=== PATIENT | male | born 1945 | race Caucasian/White ===

== ENCOUNTER → 2016-09-06 | Outpatient (CLI) | payer OTHER, MEDICARE | END | disposition home or self-care (01) | LOC: RAD 11:01 | DX: R05 Cough (principal); R63.4 Abnormal weight loss; Z72.0 Tobacco use ==

== ENCOUNTER 2017-10-07 09:08 | Inpatient (IN) | payer OTHER ==
[~2017-10-07] VITALS: Ht 177.8 cm; Wt 82.6 kg
[2017-10-07] VITALS (9 sets, daily range): BP systolic 72–147; BP diastolic 48–77
--- NOTE | ~2017-10-07 | CON ---
[place], [place] REPORT OF CONSULTATION NAME: SONJA ECHEVARRIA [facility] #: [id number] UNIT #: [id number] ROOM: 407 DOCTOR: MARIO RAMON MD BIRTHDATE: [birth year] DOS: 10/08/2017 HISTORY OF PRESENT ILLNESS: The patient is a pleasant 72-year-old gentleman who presented to the Emergency Department with left lower back/flank pain. As per the patient, he was sleeping Danyel night and went to the restroom and was sleep back to the bed. He became lightheaded. His vision went blurry and fitted to black and then he fell down, but states he no loss of consciousness, but while falling he hit on left side of the stool and subsequently was admitted, had an x-ray of the neck, which showed a lytic lesion at C2 area and subsequently consulted for further evaluation and management. PAST MEDICAL HISTORY: Bradycardia, elevated INR, hyperglycemia, left lower back pain and lymphopenia, macrocytic anemia, anxiety disorder, depression, GERD, history of NE, hyperlipidemia, hypertension. PAST SURGICAL HISTORY: Coronary artery bypass graft, triple bypass in 1993. He has a history of mitral valve replacement with mechanical valve. SOCIAL HISTORY: No drinking. No drug abuse. He is a smoker. FAMILY HISTORY: Father of liver cancer. Mother of heart attack. ALLERGIES: CIPROFLOXACIN, HYDROMORPHONE AND PENICILLIN. MEDICATIONS: Aspirin, bupropion, cetirizine, vitamin D3, docusate sodium, donepezil, doxepin, lisinopril, metoprolol, multivitamins, nicotine, nitroglycerin, omeprazole, prazosin, sertraline, warfarin. REVIEW OF SYSTEMS CONSTITUTIONAL: No chills. No fatigue. No fever. No loss of appetite. No night sweats. No weakness. No weight loss. HEAD, EYES, EARS, NOSE, AND THROAT: No trouble swallowing. No loss of smell. No loss of hearing. No double vision. No pain. No discharge. ENT AND RESPIRATORY: No wheeze. No sore throat. No change in voice. No hearing loss. No nose bleed. No cough. No trouble breathing through nose. No shortness of breath. No coughing up blood. No epistaxis. CARDIOVASCULAR: No chest pain. No dizziness. No irregular heartbeat. No leg edema. No pain in legs while walking. No palpitations. No shortness of breath. DERMATOLOGIC: No acne. No hives. No laceration. No mole. No rash. ENDOCRINE: No cold intolerance. No diabetes. No fatigue. No hot flashes. No polydipsia. No polyuria. No urinating frequently. No weight loss. HEMATOLOGIC AND LYMPH: No fatigue. No easy bruising. GASTROENTEROLOGIC: No change in bowel habits. No indigestion. No frequent bloating. No vomiting blood. No abdominal cramping. No nausea. No heartburn. No vomiting. No abdominal pain. No dysphagia. No diarrhea. No constipation. No blood in stool. MALE REPRODUCTIVE: No testicular pain. No difficulty with erection. No diminished sexual drive. No penile discharge. [place], [place] REPORT OF CONSULTATION NAME: SONJA ECHEVARRIA UNIT #: [id number] ROOM: [facility] DOCTOR: MARIO RAMON MD BIRTHDATE: [birth year] MUSCULOSKELETAL: No back pain. No muscle pain or weakness. No neck pain. No tingling/numbness. No swelling/bruising. No osteoporosis treatment. OPTHALMOLOGIC: No double vision. No diminished vision. No loss of vision. UROLOGIC: No dysuria. No frequent nighttime urination. No pain with urination. No difficulty urinating. No blood in urine. No frequent urination. No urinary incontinence. NEUROLOGIC: No loss of sensation in specific body area. No vertigo. No burning pain in feet. No trouble with balance. No trouble with coordination. No loss of consciousness. No loss of feeling/power. No confusion. No headache. No tingling/numbness. PSYCHOLOGIC: No tinnitus. No headaches. No shortness of breath. No weight decrease. No nausea. No vomiting. No abdominal discomfort. No constipation. No diarrhea. No depression. No anxiety. PHYSICAL EXAMINATION: GENERAL: Pleasant gentleman in no apparent distress. VITAL SIGNS: Stable, afebrile. HEAD, EYES, EARS, NOSE, AND THROAT: Oral mucosa appears intact. The external ears are normal in appearance. Nares are patent without lesions, exudates, erythema, or inflammation. Tongue is symmetrical. Uvula is midline. NECK AND THYROID: Neck supple without palpable masses. Trachea is midline. No thyromegaly. No carotid bruit or JVD. BREASTS: Normal. Nipples unremarkable. No drainage. No lumps felt on either side. HEART: Normal S1, S2, without significant murmur, rub, or gallop. LUNGS: Clear to auscultation and percussion with good air entry bilaterally. The patient is breathing easily without the use of accessory muscles. Diaphragmatic excursions are intact. ABDOMEN: No costovertebral angle tenderness. Soft. No organomegaly or masses. Nontender. No hernias present. Liver and spleen are not palpable. LYMPHATIC: No adenopathy noted in the cervical, supraclavicular, axillary, or inguinal regions. NEUROLGIC: Nonfocal. Oriented to person, place, and time. MENTAL STATUS: Appropriate for mood and affect. PERIPHERAL PULSES: No varicosities. Femoral and pedal pulses are palpable. EXTREMITIES: Without cyanosis, clubbing, or edema. No gross anomalies. RADIOLOGY: CT scan of the abdomen and pelvis showed 2 exophytic lesion projecting from the upper pole of the left kidney being larger than they had been in the prior CT, though they are incompletely cataract in the absence of contrast material administration. ____ CT is recommended for followup. CT cervical spine showed a roughly 2 cm lytic lesion of the C2. LABORATORY DATA: White count of 6.8, hemoglobin 12.3, hematocrit 36.2, MCV 94.3, platelet count 174,000. Chemistries: Glucose 83, EGFR is more than 60, sodium 140, potassium 3.4, chloride 106, bicarbonate 28, calcium 8.3, phosphorus 2.7, platelets 135. Total protein 6.1, SGOT 26, SGPT 18, alkaline phosphatase 59. ASSESSMENT: [place], [place] REPORT OF CONSULTATION NAME: SONJA ECHEVARRIA UNIT #: [id number] ROOM: 407 DOCTOR: MARIO RAMON MD BIRTHDATE: [birth year] 1. A 2 cm lytic lesion in the C2 area. 2. Syncope collapse. 3. Exophytic lesion in the right kidney. 4. Macrocytic anemia. PLAN: I had detailed discussion with the patient, will get workup to rule out multiple myeloma including immunofixation studies, the skeletal survey, etc. Also, review of records including x-rays. Depending on that, further intervention. I had a detailed discussion with the patient about it, seemed to understand. Ample time was given to the patient to ask me questions. We will follow. Thanks for consulting and letting me to participate in the care of this interesting patient. MARIO RAMON MD CM:CONSTR:REPORT OF CONSULTATION 1234 10/23/17 0656 interface
--- NOTE | ~2017-10-07 | CON ---
[place], [place] REPORT OF CONSULTATION NAME: SONJA ECHEVARRIA UNIT #: [id number] ROOM: 407 DOCTOR: DERREK CRAIG MD BIRTHDATE: [birth year] DOS: 10/07/2017 REASON FOR CONSULTATION: Lightheadedness and possible syncope with collapse. HISTORY OF PRESENT ILLNESS: The patient is a 72-year-old man who has a history of atherosclerotic and valvular heart disease. He is typically followed by the [facility] and has a cardiology nurse practitioner that sees him at a clinic in [place], [place]. The patient states that he had a myocardial infarction in 1991, at which time, he reportedly had a cardiac arrest. He subsequently underwent a 3-vessel bypass in 1993 at [facility]. He developed mitral valve problems requiring a mechanical mitral valve replacement at the [facility] in 1997. As best I can tell from him, he has not had any surgery since. He does not believe that he has had a stress test since that time. He has had an echocardiogram within the last few weeks and was told that he should have a heart catheterization at the [facility]. The patient does admit that he is getting more dyspneic with minor exertion. He does have episodes of chest pain. His electrocardiogram is not uninterpretable because of an intraventricular conduction delay, but on this admission, his troponin levels are normal. The patient states that he got up to go to the bathroom 2 nights ago. On his way back from the bathroom, he became lightheaded and collapsed, striking his back on a stool. He states that "everything went black," but he denies loss of consciousness. Since then, he has had no further syncopal episodes, but has had persistent back pain and therefore came to the Emergency Room today and was admitted. PAST MEDICAL HISTORY: Includes: 1. Atherosclerotic heart disease, status post myocardial infarction x2 in 1991. The patient reportedly had a resuscitated arrest at that time and was evaluated by Dr. Wilkins at the [facility]. 2. History of 3-vessel bypass at [facility] in 1993. Records are not currently available. 3. Status post mitral valve replacement utilizing a mechanical prosthesis, 1997, at the [facility]. 4. Chronic warfarin therapy because of mechanical mitral valve. 5. PTSD and insomnia. 6. Gastroesophageal reflux disease. 7. Hyperlipidemia. 8. Hypertension. MEDICATIONS: Prior to admission, nicotine gum 2 mg q.2 hours as needed, fluticasone nasal spray 2 sprays daily, aspirin 81 mg per day, bupropion 200 mg b.i.d., cetirizine 10 mg daily, cholecalciferol 1000 units daily, cyanocobalamin 500 mcg daily, docusate 100 mg b.i.d., donepezil 10 mg p.o. at bedtime, doxepin 10 mg at bedtime, isosorbide mononitrate 30 mg daily, lisinopril 5 mg daily, metoprolol 50 mg daily, multivitamin once a day, nitroglycerin sublingually p.r.n., omeprazole 20 mg b.i.d., prazosin 4 mg at bedtime, quetiapine 800 mg at bedtime, rosuvastatin 40 mg at bedtime, sertraline 50 mg daily, warfarin 4.5 mg [place], [place] REPORT OF CONSULTATION NAME: SONJA ECHEVARRIA UNIT #: [id number] ROOM: 407 DOCTOR: DERREK CRAIG MD BIRTHDATE: [birth year] 4 days a week with 3 mg on Mondays, Wednesdays and Fridays to maintain an INR between 2.5 and 3.5. ALLERGIES: He lists allergies to CIPROFLOXACIN, HYDROMORPHONE, AND PENICILLIN. REVIEW OF SYSTEMS: The patient denies diplopia or loss of vision. He denies focal weakness. He did have the lightheaded spell and fall noted above that prompted the current admission. He denies nausea or vomiting. He denies fevers, chills, sweats or recent weight gain. He does admit to dyspnea with exertion, which seems to be getting worse. He denies syncope, aside from the event, prompting the current admission. He denies hemoptysis or hematemesis. He denies blood in his stools or urine. He denies any change in bowel or bladder patterns. He denies peripheral edema or any history of blood clot. He denies polyuria or polydipsia. Remainder of the review of systems is negative except as noted above. FAMILY HISTORY: Father from liver cancer. Mother from a heart attack. SOCIAL HISTORY: The patient is . He does not drink alcohol or use illicit drugs but he does smoke. PHYSICAL EXAMINATION: GENERAL: The patient is an elderly white male who is awake, alert and oriented. He does look older than his stated age. VITAL SIGNS: Pulse is 66 and regular. It has been as low as 48 during this hospitalization. Blood pressure is 113/69. He is afebrile. He weighs 82.5 kg and has a body mass index of 26.1. HEENT: Normocephalic and atraumatic. Extraocular muscles are intact. Sclerae are clear. Pupils equal, round and react to light. The oral mucosa is moist. Tongue is midline. NECK: Supple. He has no jugular distention. Carotids are full. I heard no bruits. He had no neck or supraclavicular masses. LUNGS: Respirations are unlabored. His chest has decreased breath sounds at the bases, but no wheezes or rales. He has no presacral edema. His flank is tender. CARDIOVASCULAR: Heart has a regular rhythm. He has crisp metallic valve clicks. There is a grade 2/6 systolic murmur at the lower left sternal border. No diastolic murmurs are present. The PMI is not displaced. There is no precordial heave, lift or thrill. ABDOMEN: Soft and normally active without masses, organomegaly or bruits. EXTREMITIES: Showed no edema. Peripheral pulses are easily palpated bilaterally in the feet. He did have no palpable cords and no Homans sign. LABORATORY DATA: Hemoglobin is 12.7, hematocrit 38.0, white count 6900, platelet count 190,000. INR is elevated at 4.5. Sodium is 141, potassium 3.8, BUN 7, creatinine 0.94. Troponin levels are negative x2. Electrocardiogram shows sinus rhythm at a rate of 55 with an intraventricular conduction delay. [place], [place] REPORT OF CONSULTATION NAME: [facility]RIA [id number] UNIT #: [id number] ROOM: [facility] DOCTOR: DERREK CRAIG MD BIRTHDATE: [birth year] Chest x-ray showed normal cardiac silhouette with evidence for prior sternotomy. IMPRESSION: 1. Near syncopal episode. 2. Bradycardia and hypotension, possibly due to medications. 3. History of atherosclerotic heart disease. The patient is status post remote bypass surgery. 4. History of valvular heart disease. The patient is status post remote mitral valve replacement utilizing mechanical prosthesis. 5. Cigarette abuse. 6. [facility] not currently available. PLAN: For now, I think we should cut back on his medications, but I would like to continue a low dose of metoprolol. We can withhold the prazosin and lisinopril, but I would continue isosorbide for the time being. We will attempt to get the records from the [facility], but if that is not possible, we may need to repeat his 2D echocardiogram to reassess his mitral valve structure and LV function. In addition, he probably should have a pharmacologic stress test in order to evaluate him for ischemia as a possible cause for arrhythmias. We will keep him on a monitor in the meantime and check orthostatic vital signs. Further recommendations will depend upon his progress in the hospital. I thank the hospitalist physicians for asking our advice regarding his care. DERREK CRAIG MD CM:CONSTR:REPORT OF CONSULTATION 1727 10/24/17 0831 interface
--- NOTE | ~2017-10-07 | PR ---
[place], [place] PROGRESS NOTE NAME: SONJA CEHEVARRIA [facility] #: [id number] UNIT #: [id number] ROOM: 407 DOCTOR: DERREK CRAIG MD BIRTHDATE: [birth year] DOS: 10/08/2017 SUBJECTIVE: The patient was seen today at his bedside with his in attendance on 10/08/2017. He is still sore from his fall. We have cut back on his medications considerably, but his blood pressure remains well controlled. It varies from 109/77-148/77. Currently, he is only on metoprolol and isosorbide for blood pressure control. I did review his echocardiogram today. The left ventricle is normal in size. The septum appears thin and akinetic. There is moderate concentric left ventricular hypertrophy with an ejection fraction about 40-45%. Diastole could not be assessed. The mitral valve prosthesis appears to be well seated and is functioning normally. Aortic valve appears normal. The patient was noted to have a lesion on the CT scan of his cervical spine. There is a concern that this may represent a lytic lesion, which may be either metastatic or related to myeloma. PHYSICAL EXAMINATION: VITAL SIGNS: Today, his pulse is 62 and regular, blood pressure is 109/77. He is afebrile. Orthostatic vital signs did show a drop from 142/75 supine to 129/88 sitting and 124/77 standing. Earlier, it went from 148/77 supine to 123/81 standing. NECK: Supple. He has no jugular distention. Carotids are full. LUNGS: Respirations are unlabored. Chest is clear to auscultation and percussion with decreased breath sounds at the bases, but no wheezes or rales. HEART: Had a regular rhythm with crisp metallic valve clicks. There is a grade 2/6 systolic murmur at the lower left sternal border, but no diastolic murmurs. The PMI is not displaced and there is no precordial heave, lift or thrill. EXTREMITIES: Showed no edema. IMPRESSION: 1. Near syncopal episode. This may have been related to orthostatic hypotension. Blood pressure appears to be better since we have cut back on his medications. 2. Bradycardia and hypotension. Also, likely due to medical therapies. 3. History of atherosclerotic heart disease, status post remote bypass surgery. The patient does have a wall motion abnormality on his echocardiogram and diminished ejection fraction; however, he states that the ejection fraction in the past has been measured at less than 40% consistent with what I see today. 4. Cigarette abuse. 5. History of valvular heart disease, status post mitral valve replacement. The mechanical mitral prosthesis appears to be functioning normally. 6. Lytic lesion on the cervical spine. PLAN: The patient's cardiac status appears to be stable and he has no symptoms to suggest acute coronary injury. For now, we will await patient's further evaluation by Dr. Clark with a skeletal survey, etc. If he does indeed have a myeloma, cardiac catheterization would be likely to cause renal damage and therefore we will delay further cardiac workup until his hematologic workup is [place], [place] PROGRESS NOTE NAME: SONJA ECHEVARRIA UNIT #: [id number] ROOM: [facility] DOCTOR: DERREK CRAIG MD BIRTHDATE: [birth year] completed. We thank the hospitalist physicians for asking our advice regarding the patient's care. DERREK CRAIG MD CM:PNTRANS [id number] DERREK CRAIG MD 10/09/17 0534 interface
[2017-10-07] MEDS ORDERED: SEROQUEL400 M1 PO (09:14)
[2017-10-07 10:48] LABS: BASO % 0.4 % (0.0-1.0); EOS # 0.1 10*3/uL (0.0-0.4); EOS % 1.7 % (1.0-4.0); HEMOGLOBIN 12.7 g/dl (14.0-18.0); LYMPH # 1.5 10*3/uL (1.3-4.4); LYMPH % 22.1 % (27.0-41.0); MEAN CELL VOLUME 95.5 fl (80.0-94.0); MEAN CORPUSCULAR HGB 31.9 pg (27.0-31.0); MEAN CORPUSCULAR HGB CONC 33.4 g/dl (33.0-37.0); MEAN PLATELET VOLUME 9.8 fl (9.6-12.3); MONO # 0.7 10*3/uL (0.1-1.0); MONO % 10.5 % (3.0-9.0); NEUT # 4.4 10*3/uL (2.3-7.9); PLATELET COUNT AUTOMATED 190 10*3/uL (130-400); RED BLOOD COUNT 3.98 10*6/uL (4.50-5.90); RED CELL DISTRI WIDTH 12.9 % (0-14.5); WHITE BLOOD COUNT 6.9 10*3/uL (4.8-10.8)
[2017-10-07 11:00] LABS: ACT PARTIAL THROMBO TIME 43.9 SECONDS (20.8-31.5); INTERNATIONAL NORM RATIO 4.5 (2.0-3.5)
[2017-10-07 11:03] LABS: ALBUMIN 3.9 gm/dl (3.1-4.5); ALKALINE PHOSPHATASE 70 U/L (45-117); BUN 7 mg/dl (7-24); CHLORIDE 106 mmol/L (98-107); CREATININE 0.94 mg/dL (0.70-1.30); POTASSIUM 3.8 mmol/L (3.5-5.1); SGOT/AST 28 IU/L (3-35); SGPT/ALT 21 U/L (12-78); SODIUM 141 mmol/L (136-145)
[2017-10-07 11:06] LABS: TROPONIN I < 0.015 ng/ml (<0.045)
[2017-10-07] MEDS ORDERED: PRAZOSIN HCL2 MG PO (11:30)
[2017-10-07] MEDS ORDERED: LISINOPRIL5 MG PO (11:30)
[2017-10-07] MEDS ORDERED: FLOVENT DISKUS50 MCG INH (11:34)
[2017-10-07] MEDS ORDERED: ISOSORBIDE MONO30 MG PO (11:34)
[2017-10-07] MEDS ORDERED: NITROGLYCERIN0.4 MG PO (11:36)
[2017-10-07] MEDS ORDERED: WARFARIN SODIUM1 MG PO (11:37)
[2017-10-07] MEDS ORDERED: WARFARIN SOD2 MG PO (11:40)
[2017-10-07] MEDS ORDERED: BUPROPION HYDR100 MG PO (11:41)
[2017-10-07] MEDS ORDERED: SERTRALINE HYDR50 MG PO (11:42)
[2017-10-07] MEDS ORDERED: [UNRECOGNIZED DRUG - REMARK] BC (11:43)
[2017-10-07] MEDS ORDERED: CETIRIZINE10 MG PO (11:43)
[2017-10-07] MEDS ORDERED: ROSUVASTATIN CA40 MG PO (11:44)
[2017-10-07] MEDS ORDERED: METOPROLOL SUC100 M1 PO (11:45)
[2017-10-07] MEDS ORDERED: QUETIAPINE FUM400 M1 PO (11:45)
[2017-10-07] MEDS ORDERED: DONEPEZIL HCL10 MG PO (11:46)
[2017-10-07] MEDS ORDERED: OMEPRAZOLE20 M2 PO (11:47)
[2017-10-07] MEDS ORDERED: MULTIVITS (11:48)
[2017-10-07] MEDS ORDERED: ASPIRIN81 M1 PO (11:49)
[2017-10-07] MEDS ORDERED: DOCUSATE SODIU100 M2 PO (11:50)
[2017-10-07] MEDS ORDERED: DOXEPIN HCL10 MG PO (11:51)
[2017-10-07] MEDS ORDERED: VITAMIN D31000 UNI1 PO (11:52)
[2017-10-07] MEDS ORDERED: B12,B-12,B 12500 MC1 PO (16:02)
[2017-10-07] MEDS ORDERED: MULTIVITAMINS1 EAC5 PO (16:03)
[2017-10-07] MEDS ORDERED: FLONASE ALLERG9.9 ML NAS (16:03)
[2017-10-07] MEDS ORDERED: COUMADIN3 M1 PO (16:05)
[2017-10-07] MEDS ORDERED: COUMADIN4 M2 PO (16:06)
[2017-10-08] VITALS: BP 148/77
[2017-10-08 06:31] LABS: BASO # 0.1 10*3/uL (0.0-0.1); BASO % 0.9 % (0.0-1.0); EOS # 0.1 10*3/uL (0.0-0.4); EOS % 1.6 % (1.0-4.0); HEMATOCRIT 36.2 % (42.0-52.0); HEMOGLOBIN 12.3 g/dl (14.0-18.0); LYMPH # 1.7 10*3/uL (1.3-4.4); LYMPH % 24.7 % (27.0-41.0); MEAN CELL VOLUME 94.3 fl (80.0-94.0); MEAN PLATELET VOLUME 10.1 fl (9.6-12.3); MONO # 0.8 10*3/uL (0.1-1.0); MONO % 11.1 % (3.0-9.0); NEUT # 4.1 10*3/uL (2.3-7.9); PLATELET COUNT AUTOMATED 174 10*3/uL (130-400); RED BLOOD COUNT 3.84 10*6/uL (4.50-5.90); RED CELL DISTRI WIDTH 12.7 % (0-14.5); WHITE BLOOD COUNT 6.8 10*3/uL (4.8-10.8)
[2017-10-08 06:57] LABS: ACT PARTIAL THROMBO TIME 46.3 SECONDS (20.8-31.5); INTERNATIONAL NORM RATIO 4.3 (2.0-3.5)
[2017-10-08 06:58] LABS: ALBUMIN 3.5 gm/dl (3.1-4.5); BUN 6 mg/dl (7-24); CHLORIDE 106 mmol/L (98-107); CREATININE 0.82 mg/dL (0.70-1.30); PHOSPHOROUS 2.7 mg/dL (2.5-4.9); POTASSIUM 3.4 mmol/L (3.5-5.1); SGOT/AST 26 IU/L (3-35); SGPT/ALT 18 U/L (12-78); SODIUM 140 mmol/L (136-145); TOTAL PROTEIN 6.1 gm/dL (6.4-8.2)
[2017-10-08 07:03] LABS: ALKALINE PHOSPHATASE 59 U/L (45-117); CHOLESTEROL 108 mg/dL (<200); FREE T4 0.84 ng/dl (0.76-1.46); HDL CHOLESTEROL 35 mg/dl (40-60); LDL CHOLESTEROL 46 mg/dL (9-159); TRIGLYCERIDES 135 mg/dl (<150); VLDL CHOLESTEROL 27 mg/dL (6-40)
[2017-10-08 08:00] VITALS: BP 141/76
[2017-10-08 11:43] LABS: VITAMIN D, 25-HYDROXY 41.8 ng/mL (30-100)
[2017-10-08 12:00] VITALS: BP 105/54; BP 132/74
[2017-10-08 16:00] VITALS: BP 109/77
[2017-10-08 20:00] VITALS: BP 125/72
[2017-10-09] VITALS: BP 142/77
[2017-10-09 07:11] LABS: BASO % 0.3 % (0.0-1.0); EOS # 0.1 10*3/uL (0.0-0.4); EOS % 1.1 % (1.0-4.0); HEMATOCRIT 35.8 % (42.0-52.0); HEMOGLOBIN 11.8 g/dl (14.0-18.0); LYMPH # 1.7 10*3/uL (1.3-4.4); MEAN CELL VOLUME 95.2 fl (80.0-94.0); MEAN CORPUSCULAR HGB 31.4 pg (27.0-31.0); MEAN PLATELET VOLUME 10.5 fl (9.6-12.3); MONO # 0.7 10*3/uL (0.1-1.0); MONO % 10.7 % (3.0-9.0); NEUT # 3.7 10*3/uL (2.3-7.9); NEUT % 59.9 % (47.0-73.0); PLATELET COUNT AUTOMATED 170 10*3/uL (130-400); RED BLOOD COUNT 3.76 10*6/uL (4.50-5.90); WHITE BLOOD COUNT 6.2 10*3/uL (4.8-10.8)
[2017-10-09 07:35] LABS: INTERNATIONAL NORM RATIO 3.2 (2.0-3.5)
[2017-10-09 07:41] LABS: BUN 8 mg/dl (7-24); CHLORIDE 107 mmol/L (98-107); CREATININE 0.77 mg/dL (0.70-1.30); POTASSIUM 3.2 mmol/L (3.5-5.1); SODIUM 142 mmol/L (136-145)
[2017-10-09 08:00] VITALS: BP 117/74
[2017-10-09 12:00] VITALS: BP 105/54
[2017-10-09] MEDS ORDERED: METOPROLOL SUCC25 M2 PO (12:58)
[2017-10-09] MEDS ORDERED: HYDROCODONE-AC1 EAC1 PO (12:58)
[2017-10-09 16:09] LABS: A/G RATIO 1.5 (0.7-1.7); ALBUMIN 3.5 g/dL (2.9-4.4); ALPHA-1-GLOBULIN 0.3 g/dL (0.0-0.4); ALPHA-2-GLOBULIN 0.5 g/dL (0.4-1.0); GAMMA GLOBULIN 0.7 g/dL (0.4-1.8); GLOBULIN, TOTAL 2.3 g/dL (2.2-3.9); M-SPIKE Not Observed g/dL (Not Observed); PE INTERPRETATION Comment: (.); TOTAL PROTEIN, SERUM 5.8 g/dL (6.0-8.5)
[2017-10-10 16:10] LABS: ALBUMIN, URINE RANDOM 35.9 % (.); ALPHA-1-GLOBULIN, URINE 2.1 % (.); ALPHA-2-GLOBULIN, URINE 15.4 % (.); GAMMA GLOBULIN, URINE 18.7 % (.); M-SPIKE % Not Observed % (Not Observed)
== END 2017-10-09 14:32 | disposition home or self-care (01) | DRG 315 ==
LOC: ED 09:08 → EDHOLD 11:47 → 4E 11:47
PROVIDERS: Internal Medicine; Internal Medicine Hematology & Oncology; Nurse Practitioner Family
DX: I95.89 Other hypotension (principal); C90.00 Multiple myeloma not having achieved remission; I11.0 Hypertensive heart disease with heart failure; I50.22 Chronic systolic (congestive) heart failure; R55 Syncope and collapse; D53.9 Nutritional anemia, unspecified; I44.7 Left bundle-branch block, unspecified; R00.1 Bradycardia, unspecified; F43.10 Post-traumatic stress disorder, unspecified; E78.5 Hyperlipidemia, unspecified; K21.9 Gastro-esophageal reflux disease without esophagitis; F41.9 Anxiety disorder, unspecified; R73.9 Hyperglycemia, unspecified; F32.9 Major depressive disorder, single episode, unspecified; M54.5 Low back pain; I25.10 Atherosclerotic heart disease of native coronary artery without angina pectoris; I25.2 Old myocardial infarction; Z95.1 Presence of aortocoronary bypass graft; Z95.4 Presence of other heart-valve replacement; Z79.01 Long term (current) use of anticoagulants; Z88.1 Allergy status to other antibiotic agents; Z88.0 Allergy status to penicillin; Z88.8 Allergy status to other drugs, medicaments and biological substances; Z80.0 Family history of malignant neoplasm of digestive organs; Z82.49 Family history of ischemic heart disease and other diseases of the circulatory system; Z79.82 Long term (current) use of aspirin; Z79.899 Other long term (current) drug therapy; Z90.49 Acquired absence of other specified parts of digestive tract; Z71.6 Tobacco abuse counseling; Z72.0 Tobacco use; M48.8X2 Other specified spondylopathies, cervical region; N28.9 Disorder of kidney and ureter, unspecified; D72.810 Lymphocytopenia

== ENCOUNTER → 2017-10-18 | Outpatient (CLI) | payer MEDICARE ==
[~2017-10-18] MED LIST: ASPIRIN81 M1 PO; B12,B-12,B 12500 MC1 PO; BUPROPION HYDR100 MG PO; CETIRIZINE10 MG PO; COUMADIN3 M1 PO; COUMADIN4 M2 PO; DOCUSATE SODIU100 M2 PO; DONEPEZIL HCL10 MG PO; DOXEPIN HCL10 MG PO; FLONASE ALLERG9.9 ML NAS; FLOVENT DISKUS50 MCG INH; HYDROCODONE-AC1 EAC1 PO; ISOSORBIDE MONO30 MG PO; LISINOPRIL5 MG PO; METOPROLOL SUC100 M1 PO; METOPROLOL SUCC25 M2 PO; MULTIVITAMINS1 EAC5 PO; MULTIVITS; NITROGLYCERIN0.4 MG PO; OMEPRAZOLE20 M2 PO; PRAZOSIN HCL2 MG PO; QUETIAPINE FUM400 M1 PO; ROSUVASTATIN CA40 MG PO; SEROQUEL400 M1 PO; SERTRALINE HYDR50 MG PO; VITAMIN D31000 UNI1 PO; WARFARIN SOD2 MG PO; WARFARIN SODIUM1 MG PO; [UNRECOGNIZED DRUG - REMARK] BC
[2017-10-18 13:32] LABS: BASO # 0.1 10*3/uL (0.0-0.1); BASO % 0.9 % (0.0-1.0); EOS # 0.2 10*3/uL (0.0-0.4); EOS % 3.7 % (1.0-4.0); HEMATOCRIT 37.9 % (42.0-52.0); HEMOGLOBIN 12.8 g/dl (14.0-18.0); LYMPH # 2.2 10*3/uL (1.3-4.4); MEAN CELL VOLUME 95.2 fl (80.0-94.0); MEAN CORPUSCULAR HGB 32.2 pg (27.0-31.0); MEAN CORPUSCULAR HGB CONC 33.8 g/dl (33.0-37.0); MEAN PLATELET VOLUME 10.2 fl (9.6-12.3); MONO # 0.5 10*3/uL (0.1-1.0); MONO % 9.1 % (3.0-9.0); NEUT # 2.5 10*3/uL (2.3-7.9); NEUT % 45.2 % (47.0-73.0); PLATELET COUNT AUTOMATED 237 10*3/uL (130-400); RED BLOOD COUNT 3.98 10*6/uL (4.50-5.90); RED CELL DISTRI WIDTH 13.1 % (0-14.5); WHITE BLOOD COUNT 5.5 10*3/uL (4.8-10.8)
[2017-10-18 14:00] LABS: IRON 78 ug/dL (65-175); TOTAL IRON BINDING CAPACITY 295 ug/dl (250-450)
== END | disposition home or self-care (01) ==
LOC: LAB 12:57
PROVIDERS: Internal Medicine Hematology & Oncology
DX: D64.9 Anemia, unspecified (principal)

== ENCOUNTER 2019-02-20 20:54 | Emergency (ER) | payer OTHER ==
[~2019-02-20] VITALS: Ht 177.8 cm; Wt 86.2 kg
[2019-02-20 20:57] VITALS: BP 153/79
== END 2019-02-20 23:06 | disposition home or self-care (01) ==
LOC: ED 20:54
DX: S61.412A Laceration without foreign body of left hand, initial encounter (principal); S61.411A Laceration without foreign body of right hand, initial encounter; S01.21XA Laceration without foreign body of nose, initial encounter; F17.200 Nicotine dependence, unspecified, uncomplicated; Z79.01 Long term (current) use of anticoagulants; Z88.1 Allergy status to other antibiotic agents; Z88.0 Allergy status to penicillin; Z88.6 Allergy status to analgesic agent; Z79.899 Other long term (current) drug therapy; Z79.82 Long term (current) use of aspirin; Z90.49 Acquired absence of other specified parts of digestive tract; W01.0XXA Fall on same level from slipping, tripping and stumbling without subsequent striking against object, initial encounter; Y93.89 Activity, other specified; Y92.096 Garden or yard of other non-institutional residence as the place of occurrence of the external cause; Y99.8 Other external cause status

== ENCOUNTER 2020-01-07 10:39 | Observation (INO) | payer OTHER ==
[2020-01-07] VITALS (9 sets, daily range): BP systolic 112–146; BP diastolic 62–86
[~2020-01-07] VITALS: Ht 180.3 cm; Wt 87.1 kg
[~2020-01-07 10:39] MED LIST changes: -ASPIRIN81 M1 PO; -BUPROPION HYDR100 MG PO; +BUPROPION HYDR200 M2 PO; -COUMADIN3 M1 PO; +Coumadin3 MG PO; +LOW DOSE ASPIRI81 M1 PO; -PRAZOSIN HCL2 MG PO; +PRAZOSIN HYDROCH5 MG PO; +QUETIAPINE FUM300 M1 PO; -QUETIAPINE FUM400 M1 PO; -VITAMIN D31000 UNI1 PO; +VITAMIN D325 MCG PO
[2020-01-07 11:05] LABS: BASO # 0.1 10*3/uL (0.0-0.1); BASO % 0.9 % (0.0-1.0); EOS # 0.2 10*3/uL (0.0-0.4); EOS % 2.8 % (1.0-4.0); HEMATOCRIT 38.7 % (42.0-52.0); LYMPH # 1.6 10*3/uL (1.3-4.4); LYMPH % 28.3 % (27.0-41.0); MEAN CELL VOLUME 95.6 fl (80.0-94.0); MEAN CORPUSCULAR HGB 32.3 pg (27.0-31.0); MEAN CORPUSCULAR HGB CONC 33.9 g/dl (33.0-37.0); MEAN PLATELET VOLUME 9.9 fl (9.6-12.3); MONO # 0.6 10*3/uL (0.1-1.0); MONO % 10.3 % (3.0-9.0); NEUT # 3.3 10*3/uL (2.3-7.9); NEUT % 56.7 % (47.0-73.0); PLATELET COUNT AUTOMATED 200 10*3/uL (130-400); RED BLOOD COUNT 4.05 10*6/uL (4.50-5.90); RED CELL DISTRI WIDTH 12.8 % (0-14.5); WHITE BLOOD COUNT 5.8 10*3/uL (4.8-10.8)
[2020-01-07 11:15] LABS: INTERNATIONAL NORM RATIO 3.1 (2.0-3.5)
[2020-01-07 11:20] LABS: ALBUMIN 3.6 gm/dl (3.1-4.5); ALKALINE PHOSPHATASE 72 U/L (45-117); BUN 10 mg/dl (7-24); CHLORIDE 107 mmol/L (98-107); CREATININE 0.95 mg/dL (0.70-1.30); SGOT/AST 24 IU/L (3-35); SGPT/ALT 17 U/L (12-78); SODIUM 140 mmol/L (136-145); TOTAL PROTEIN 6.8 gm/dL (6.4-8.2)
[2020-01-07 11:22] LABS: TROPONIN I < 0.015 ng/ml (<0.045)
[2020-01-07] MEDS ORDERED: LISINOPRIL5 MG PO (12:55)
[2020-01-07] MEDS ORDERED: MEMANTINE HCL10 MG PO (12:56)
[2020-01-07] MEDS ORDERED: METOPROLOL SUCC50 M1 PO (13:02)
[2020-01-07] MEDS ORDERED: CHEST CONGESTI400 MG PO (13:05)
[2020-01-07 17:06] LABS: BILIRUBIN NEGATIVE; BLOOD NEGATIVE (NEGATIVE); CLARITY CLEAR (CLEAR); COLOR YELLOW (YELLOW); EPITHELIAL CELLS 0-2; GLUCOSE NEGATIVE; KETONE NEGATIVE; LEUKO ESTERASE NEGATIVE (NEGATIVE); NITRITE NEGATIVE (NEGATIVE); RBC 0-2 rbc/hpf (0-2); SPECIFIC GRAVITY 1.005 (1.001-1.030); UROBILINOGEN 0.2 E.U./dl (0.0-1.0); WBC 0-2 wbc/hpf (0-5)
[2020-01-08] VITALS (11 sets, daily range): BP systolic 90–144; BP diastolic 55–97
[2020-01-08 06:03] LABS: BASO % 0.6 % (0.0-1.0); EOS # 0.2 10*3/uL (0.0-0.4); EOS % 2.5 % (1.0-4.0); LYMPH # 2.2 10*3/uL (1.3-4.4); LYMPH % 34.3 % (27.0-41.0); MEAN CELL VOLUME 96.7 fl (80.0-94.0); MEAN CORPUSCULAR HGB 32.1 pg (27.0-31.0); MEAN CORPUSCULAR HGB CONC 33.2 g/dl (33.0-37.0); MEAN PLATELET VOLUME 9.6 fl (9.6-12.3); MONO # 0.6 10*3/uL (0.1-1.0); MONO % 9.1 % (3.0-9.0); NEUT # 3.3 10*3/uL (2.3-7.9); NEUT % 52.5 % (47.0-73.0); PLATELET COUNT AUTOMATED 200 10*3/uL (130-400); RED BLOOD COUNT 4.24 10*6/uL (4.50-5.90); RED CELL DISTRI WIDTH 13.1 % (0-14.5); WHITE BLOOD COUNT 6.3 10*3/uL (4.8-10.8)
[2020-01-08 06:31] LABS: ALKALINE PHOSPHATASE 80 U/L (45-117); BUN 9 mg/dl (7-24); CHLORIDE 108 mmol/L (98-107); CHOLESTEROL 164 mg/dL (<200); HDL CHOLESTEROL 52 mg/dl (40-60); LDL CHOLESTEROL 82 mg/dL (9-159); POTASSIUM 3.4 mmol/L (3.5-5.1); SGOT/AST 27 IU/L (3-35); SGPT/ALT 21 U/L (12-78); SODIUM 141 mmol/L (136-145); TOTAL PROTEIN 7.7 gm/dL (6.4-8.2); TRIGLYCERIDES 148 mg/dl (<150); VLDL CHOLESTEROL 30 mg/dL (6-40)
[2020-01-08 08:02] LABS: VITAMIN D, 25-HYDROXY 49.4 ng/mL (30-100)
[2020-01-09 06:28] LABS: BASO # 0.1 10*3/uL (0.0-0.1); EOS # 0.2 10*3/uL (0.0-0.4); EOS % 3.8 % (1.0-4.0); HEMATOCRIT 39.7 % (42.0-52.0); LYMPH # 2.1 10*3/uL (1.3-4.4); LYMPH % 33.9 % (27.0-41.0); MEAN CELL VOLUME 98.3 fl (80.0-94.0); MEAN CORPUSCULAR HGB 31.9 pg (27.0-31.0); MEAN CORPUSCULAR HGB CONC 32.5 g/dl (33.0-37.0); MEAN PLATELET VOLUME 10.1 fl (9.6-12.3); MONO # 0.6 10*3/uL (0.1-1.0); MONO % 10.1 % (3.0-9.0); NEUT # 3.1 10*3/uL (2.3-7.9); NEUT % 50.1 % (47.0-73.0); PLATELET COUNT AUTOMATED 182 10*3/uL (130-400); RED BLOOD COUNT 4.04 10*6/uL (4.50-5.90); RED CELL DISTRI WIDTH 13.1 % (0-14.5); WHITE BLOOD COUNT 6.1 10*3/uL (4.8-10.8)
[2020-01-09 07:02] LABS: INTERNATIONAL NORM RATIO 3.4 (2.0-3.5)
[2020-01-09 07:10] LABS: BUN 12 mg/dl (7-24); CHLORIDE 109 mmol/L (98-107); CREATININE 0.98 mg/dL (0.70-1.30); SODIUM 139 mmol/L (136-145)
[2020-01-09 08:00] VITALS: BP 122/71
[2020-01-09 12:00] VITALS: BP 101/66
[2020-01-09] MEDS ORDERED: METOPROLOL SUCC50 M1 PO (12:03)
== END 2020-01-09 13:42 | disposition home or self-care (01) ==
LOC: ED 10:39 → 4E 11:44 → EDHOLD 11:44 → 4E 12:01
PROVIDERS: Emergency Medicine; Internal Medicine; Registered Nurse; ADMIT Internal Medicine; ATTEND Internal Medicine
DX: I48.91 Unspecified atrial fibrillation (principal); F03.90 Unspecified dementia, unspecified severity, without behavioral disturbance, psychotic disturbance, mood disturbance, and anxiety; E44.0 Moderate protein-calorie malnutrition; E87.6 Hypokalemia; R73.9 Hyperglycemia, unspecified; I11.0 Hypertensive heart disease with heart failure; I50.20 Unspecified systolic (congestive) heart failure; E87.8 Other disorders of electrolyte and fluid balance, not elsewhere classified

== ENCOUNTER 2020-01-12 10:16 | Inpatient (IN) | payer OTHER ==
[~2020-01-12] VITALS: Ht 180.3 cm; Wt 84.6 kg
[2020-01-12 10:16] VITALS: BP 122/85
[~2020-01-12 10:16] MED LIST changes: +CHEST CONGESTI400 MG PO; +MEMANTINE HCL10 MG PO; +METOPROLOL SUCC50 M1 PO
--- NOTE | 2020-01-12 10:55 | NUR ---
REFUSING TESTING AT THIS TIME. STATING HE WANTS TO LEAVE. I HAVE SPOKEN TO HIS AND SHE WILL BE DOWN.
[2020-01-12 11:32] LABS: BASO % 0.6 % (0.0-1.0); EOS # 0.2 10*3/uL (0.0-0.4); EOS % 2.5 % (1.0-4.0); HEMATOCRIT 39.3 % (42.0-52.0); LYMPH # 1.7 10*3/uL (1.3-4.4); LYMPH % 25.5 % (27.0-41.0); MEAN CELL VOLUME 96.8 fl (80.0-94.0); MEAN CORPUSCULAR HGB CONC 33.1 g/dl (33.0-37.0); MEAN PLATELET VOLUME 10.1 fl (9.6-12.3); MONO # 0.7 10*3/uL (0.1-1.0); MONO % 9.6 % (3.0-9.0); NEUT # 4.1 10*3/uL (2.3-7.9); NEUT % 60.6 % (47.0-73.0); PLATELET COUNT AUTOMATED 225 10*3/uL (130-400); RED BLOOD COUNT 4.06 10*6/uL (4.50-5.90); RED CELL DISTRI WIDTH 12.8 % (0-14.5); WHITE BLOOD COUNT 6.7 10*3/uL (4.8-10.8)
[2020-01-12 11:42] LABS: BILIRUBIN NEGATIVE; BLOOD NEGATIVE (NEGATIVE); CLARITY CLEAR (CLEAR); COLOR YELLOW (YELLOW); GLUCOSE NEGATIVE; KETONE NEGATIVE; PH 5.5 (4.5-8.0)
[2020-01-12 11:43] LABS: LEUKO ESTERASE NEGATIVE (NEGATIVE); NITRITE NEGATIVE (NEGATIVE)
[2020-01-12 11:47] LABS: ALBUMIN 3.7 gm/dl (3.1-4.5); ALKALINE PHOSPHATASE 77 U/L (45-117); BUN 10 mg/dl (7-24); CHLORIDE 106 mmol/L (98-107); LIPASE 81 U/L (73-393); POTASSIUM 3.7 mmol/L (3.5-5.1); SGOT/AST 24 IU/L (3-35); SGPT/ALT 18 U/L (12-78); SODIUM 139 mmol/L (136-145); TOTAL PROTEIN 7.1 gm/dL (6.4-8.2)
[2020-01-12 11:48] LABS: ACT PARTIAL THROMBO TIME 53.5 SECONDS (20.0-32.1)
[2020-01-12 11:51] LABS: TROPONIN I < 0.015 ng/ml (<0.045)
[2020-01-12 11:53] LABS: RBC 0-2 rbc/hpf (0-2)
--- NOTE | 2020-01-12 13:05 | NUR ---
DENIES WOUNDS. PT IS CONFUSED. RELUCTANT TO UNDRESS COMPLETELY.
[2020-01-12 13:15] VITALS: BP 100/62
--- NOTE | 2020-01-12 13:15 | NUR ---
MSTime: 1315 A 74 year old MALE admitted to 5E under services of LATASHA ANDREWS DO. Pt. arrived via ambulance from ER. Chief complaint: JAIL PLACEMENT. CHUNG STOLL.
--- NOTE | 2020-01-12 13:30 | NUR ---
CAME UP TO PATIENT'S ROOM FROM ER DUE TO PATIENT'S WORSENING DEMENTIA.
--- NOTE | 2020-01-12 13:36 | NUR ---
MED LIST PROVIDED BY PATIENT'S SPOUSE. ONLY 1 MEDICATION NEEDS VERIFIED. PATIENT'S SAYS SHE WILL CHECK THE MEDICATION AND DOSAGE WHEN SHE GETS HOME AND WILL NOTIFY THE PATIENT'S NURSE.
[2020-01-12 16:00] VITALS: BP 134/78
--- NOTE | 2020-01-12 16:07 | NUR ---
DUE TO PATIENT'S ALTERED MENTAL STATUS AND CONSTANTLY GETTING OOB, PATIENT PLACED IN VENKATA-CHAIR NEXT TO NURSES STATION. PATIENT COOPERATIVE AND READING THE NEWSPAPER AT THIS TIME. WILL CONTINUE TO MONITOR.
--- NOTE | 2020-01-12 18:45 | NUR ---
PATIENT'S HERE TO VISIT. OFFICE MACHINE EMBOSSOGRAPH OPERATOR AWARE.
--- NOTE | 2020-01-12 19:47 | NUR ---
24 HR chart check completed.
--- NOTE | 2020-01-12 19:55 | NUR ---
AT NURSES STATION, STATES SHE IS LEAVING AND PATIENT IS "ANTSY."REQUESTING PATIENT RECEIVE "SLEEPING PILL."
[2020-01-12 20:00] VITALS: BP 132/81
--- NOTE | 2020-01-12 20:00 | NUR ---
PATIENT WANDERING PANDEY, STATES HE IS LOOKING FOR . EXPLAINED WENT HOME FOR THE NIGHT TO TAKE CARE OF THE DOGS. PATIENT AGITATED. RETURNED PATIENT TO ROOM BED ALARM APPLIED
--- NOTE | 2020-01-12 20:07 | NUR ---
MEDICATED WITH RESTORIL PER 'S REQUEST TO ASSIST WITH SLEEP. WILL MONITOR
--- NOTE | 2020-01-12 20:10 | NUR ---
PATIENT CLIMBING OOB. INCREASING CONFUSION AND AGITATION NOTED. UNABLE TO REORIENT PATIENT. PLACED IN VENKATA-CHAIR. DR GARY INFORMED OF SITUATION
--- NOTE | 2020-01-12 21:00 | NUR ---
REMAINS AWAKE, RESTLESS. BODY ALARM MAINTAINED FOR SAFETY
--- NOTE | 2020-01-12 21:36 | NUR ---
PATIENT BECOMING FURTHER AGITATED D/T NOT BEING ABLE TO FIND . REPEATEDLY EXPLAINED TO PATIENT THAT HAD WENT HOME FOR THE NIGHT AND WOULD RETURN IN AM. PATIENT DISSATISIFIED WITH EXPLANATION. IV ATIVAN PROVIDED PER PRN ORDER. WILL MONITOR
--- NOTE | 2020-01-12 22:00 | NUR ---
ATIVAN EFFECTIVE. PATIENT MORE CALM, DROWSY. RESPIRATIONS EASY. BODY ALARM MAINTAINED
[2020-01-13] VITALS: BP 92/50
--- NOTE | 2020-01-13 | NUR ---
CONTINUES TO SLEEP. NO DISTRESS NOTED. RESPIRATIONS EASY. CALL LIGHT WITHIN REACH. BODY ALARM MAINTAINED
--- NOTE | 2020-01-13 03:00 | NUR ---
REMAINS IN RECLINER, SLEEPING
--- NOTE | 2020-01-13 06:00 | NUR ---
SLEPT THROUGHOUT NIGHT WITH NO DISTRESS NOTED. RESPIRATIONS EASY. CALL LIGHT WITHIN REACH. NO VOICED COMPLAINTS THIS SHIFT. BODY ALARM MAINTAINED
[2020-01-13 06:16] LABS: BASO % 0.6 % (0.0-1.0); EOS # 0.2 10*3/uL (0.0-0.4); EOS % 3.2 % (1.0-4.0); HEMATOCRIT 39.2 % (42.0-52.0); LYMPH # 2.2 10*3/uL (1.3-4.4); LYMPH % 32.8 % (27.0-41.0); MEAN CELL VOLUME 97.8 fl (80.0-94.0); MEAN CORPUSCULAR HGB 32.9 pg (27.0-31.0); MEAN CORPUSCULAR HGB CONC 33.7 g/dl (33.0-37.0); MEAN PLATELET VOLUME 10.6 fl (9.6-12.3); MONO # 0.7 10*3/uL (0.1-1.0); NEUT # 3.5 10*3/uL (2.3-7.9); NEUT % 52.3 % (47.0-73.0); PLATELET COUNT AUTOMATED 209 10*3/uL (130-400); RED BLOOD COUNT 4.01 10*6/uL (4.50-5.90); WHITE BLOOD COUNT 6.6 10*3/uL (4.8-10.8)
[2020-01-13 06:42] LABS: ALBUMIN 3.7 gm/dl (3.1-4.5); ALKALINE PHOSPHATASE 75 U/L (45-117); BUN 12 mg/dl (7-24); CHLORIDE 104 mmol/L (98-107); POTASSIUM 3.3 mmol/L (3.5-5.1); SGOT/AST 23 IU/L (3-35); SGPT/ALT 17 U/L (12-78); SODIUM 139 mmol/L (136-145)
[2020-01-13 06:56] LABS: INTERNATIONAL NORM RATIO 5.9 (2.0-3.5)
--- NOTE | 2020-01-13 06:56 | NUR ---
DR GARY CONTACTED REGARDING CRITICAL INR. NO NEW ORDERS RECEIVED
--- NOTE | 2020-01-13 07:43 | NUR ---
Received call from Sonya at the [facility]. Patient has travel benefits and is 100% service connected. Clinical faxed to [phone].
[2020-01-13 08:00] VITALS: BP 125/81
--- NOTE | 2020-01-13 08:40 | NUR ---
PT REQUESTED AND WAS MEIDCATED WITH TYLENOL FOR C/O OF BACK AND LEG PAIN. CALL LIGHT IN REACH. WILL MONITOR
--- NOTE | 2020-01-13 08:50 | NUR ---
Occupational Therapy evaluation completed on five with full evaluation to follow. Recommend occupational therapy per plan of care and SNF upon discharge. Thank you for this referral. Ayesha Reddy OTR/L
--- NOTE | 2020-01-13 08:55 | NUR ---
PHYSICAL THERAPY Physical Therapy evaluation completed on 5e with full evaluation to follow. Recommend physical therapy per plan of care and SNF upon discharge. Thank you for this referral. Brannon Gray SPT, Lisa Hicks PT,DPT
--- NOTE | 2020-01-13 09:00 | NUR ---
Pile Driving Supervisor in to talk to patient. Patient states lives at [place] with . There are 12 steps in the home. Physician: daya mariee Pharmacy: [facility] Home health services: none Patient's level of ADLs: MINIMAL ASSIST Patient has working utilities: all working DME: Follow-up physician's appointment after d/c: will be made by hospitalist nruse director upon discharge Does patient want to access PORTAL?: no Discharge plan discussed with patient's , patient was sitting in a jennifer chair, somewhat confused, stated patient lives at home with her, she is unable to care for home at this time, she would like him to be discharged to a [place] [facility] facility when discharged, discussed with her which facility she would prefer, she [facility], she stated her daughter lives in [place] and this would be easy for someone to visit if able. was unsure if she wanted patient to go to short term skilled or for residential placement, protective services social worker will talk with patient regarding this. CHRISTY BOYD
--- NOTE | 2020-01-13 09:30 | NUR ---
MEDICATION EFFECTIVE PER PT. CALL LIGHT IN REACH. AT BEDSIDE.
--- NOTE | 2020-01-13 10:29 | NUR ---
QUALITY PROJECT MANAGER FAXED REFERRAL TO BE REVIEWED BY MIRELA PEDRAZA. IF PATIENT GOES [facility]ORT [facility]M [facility] IF [facility]IENT IS TO GO [facility] THE FACILITY CAN START THE PROCESS. WRITER EDITOR REACHED OUT TO THE PATIENTS WHO WAS UNDECIDED AT THIS TIME. QUALITY PROJECT MANAGER CONTACTED [facility] AND LEFT MESSAGE FOR RETURN CALL.
--- NOTE | 2020-01-13 10:55 | NUR ---
FACING MACHINE OPERATOR RECEIVED CALL BACK FROM [facility]. FACING MACHINE OPERATOR FAXED REFERRAL FOR HER TO REVIEW. STILL AWAITING SPOUSE DECISION ON LTC VS STC FOR PLACEMENT.
--- NOTE | 2020-01-13 13:01 | NUR ---
SEBASTIAN RECEIVED MESSAGE FROM [facility]. THEY ARE ABLE TO ACCEPT THE PATIENT TO THEIR FACILITY. [facility]. SEBASTIAN REACHED OUT TO THE PATIENT MIAH. SHE STATED SHE WOULD LIKE TO SEE IF MIRELA PEDRAZA IS ABLE TO ACCEPT BEFORE AGREEING TO [facility]. SEBASTIAN WILL FOLLOW UP WITH MIRELA PEDRAZA.
--- NOTE | 2020-01-13 15:12 | NUR ---
LABOR CONTRACTOR LEFT MESSAGE FOR [facility].
--- NOTE | 2020-01-13 15:23 | NUR ---
DIMENSIONAL ENGINEER HEARD BACK FROM [facility], THEY ARE UNABLE TO ACCEPT THE PATIENT.
[2020-01-13 16:00] VITALS: BP 109/58
--- NOTE | 2020-01-13 19:36 | NUR ---
24 HR chart check completed.
--- NOTE | 2020-01-13 20:00 | NUR ---
AMBULATING WITHIN ROOM. RESPIRATIONS EASY. LUNGS DIMINISHED, CLEAR. LOOSE NON-PROD COUGH. TRACE BLE EDEMA. CALL LIGHT WITHIN REACH. NO VOICED COMPLAINTS
[2020-01-13 20:07] VITALS: BP 125/86
--- NOTE | 2020-01-13 21:02 | NUR ---
PATIENT SHOWERED BY PA AND PLACED IN BED FOR COMFORT. PROVIDED WITH RESTORIL AND TYLENOL PER PRN ORDER TO ASSIST WITH SLEEP AND GENERALIZED ACHES. CALL LIGHT WITHIN REACH. BED ALARM IN PLACE. WILL MONITOR
--- NOTE | 2020-01-13 22:00 | NUR ---
MEDS EFFECTIVE, SLEEPING
[2020-01-14] VITALS: BP 98/52
--- NOTE | 2020-01-14 | NUR ---
SLEEPING. NO DISTRESS NOTED. RESPIRATIONS EASY. VSS. CALL LIGHT WITHN REACH. BED ALARM MAINTAINED
--- NOTE | 2020-01-14 05:40 | NUR ---
SLEPT THROUGHOUT NIGHT WITH NO DISTRESS NOTED. RESPIRATIONS EASY. CALL LIGHT WITHIN REACH. NO VOICED COMPLAINTS THIS SHIFT
[2020-01-14 07:13] LABS: BUN 8 mg/dl (7-24); CHLORIDE 105 mmol/L (98-107); CREATININE 0.96 mg/dL (0.70-1.30); POTASSIUM 3.3 mmol/L (3.5-5.1); SODIUM 139 mmol/L (136-145)
[2020-01-14 07:17] LABS: INTERNATIONAL NORM RATIO 2.7 (2.0-3.5)
[2020-01-14 08:00] VITALS: BP 108/75
--- NOTE | 2020-01-14 08:00 | NUR ---
Neurological: awake, alert Respiratory: easy, regular,no distress Breath sounds: diminished Cough: none Cardiovascular: no problem Gastrointestinal: soft Genito/Urinary: no problem Musculoskeketal: warm and dry, color pink AT BED SIDE. COOPERATIVE WITH CARE. CAROL WALKER
--- NOTE | 2020-01-14 08:32 | NUR ---
COMMERCIAL ARTIST LETTERING SPOKE TO THE PATIENTS . SEBASTIAN EXPLAINED THAT THE PATIENT WAS DENIED [facility]. SEBASTIAN EXPLAINED REFERRAL WAS ACCEPTED AT [facility]. SHE STATED THAT SHE IS UNSURE SHE WANTS HIM TO GO THAT FAR AWAY. SHE ASKED ABOUT HOME HEALTH COMMERCIAL ARTIST LETTERING EXPLAINED UNDER MEDICARE WE COULD GET HOME HEALTH IN PLACE UNTIL PR COULD SECURE HOME HEALTH UNDER THEM. PATIENTS STATED THAT SHE WANTED TO SPEAK WITH JANELLE FROM THE [facility] FIRST. SEBASTIAN CONTACTED [facility], SHE HAS BEEN WITH IN TOUCH WITH THE PATIENTS . SHE WILL BE REACH OUT TO THE PATIENTS AND CALL THIS COMMERCIAL ARTIST LETTERING BACK.
--- NOTE | 2020-01-14 10:20 | NUR ---
PHYSICAL THERAPY Patient seen this am 1:1 for therapy visit and was resting supine in bed upon therapist arrival. Patient identified by name / and was joined by his as patient transfers supine to sit EOB with MIN A x 1. Patient needed a minute or so to collect himself and was soft spoken, with a little mumbling tone which was hard to understand at times. Patient completed sit to stand MIN A and ambulated with use of wh walker, 15'x 1 to bathroom, CGA x 1. Patient needed several v/c's to improve safe step sequence and walker safety / navigation in tight bathroom spaces. Patient ambulated additional 40'x 1, wh walker, CGA, demonstrating bouts of unsteady gait pattern and LOB x 1 during 180 degree turn around. Patient returned to Kristin chair near bed and remained with call light, tray table and body alarm for safety. Will continue per POC as tolerated, total treatment time 17 minutes. Patricio Hurley, ROVING CHANGER
--- NOTE | 2020-01-14 10:30 | NUR ---
SENIOR DATA ANALYST SPOKE [facility]. THEY ARE ABLE TO ACCEPT THE PATIENT UNDER HIS MEDICARE. PATIENT WILL NEED A 3RD NIGHT STAY. PATIENT WILL BE ABLE TO GO IF MEDICALLY STABLE 01/15/2020. SENIOR DATA ANALYST FAXED UPDATES TO [facility].
--- NOTE | 2020-01-14 10:31 | NUR ---
OT NOTE Pt was laying supine in bed with head slightly elevated agreeable to 15 minutes of OT therapy. Identified by name and date of with complaints of 7/10 B ankle pain. Transfer supine to EOB SBA. Sit-stand Vicki with w/w for saftey. Functional mobility from EOB to bathroom CGA with w/w. verbal cues needed in bathroom for walker saftey. Once pt was up moving he rated his pain a 1/10 in B ankles. Transferring on and off commode CGA. Functional mobility from bathroom to hallway to jennifer chair Vicki with w/w for episodes of unsteadiness. Pt completed BUE exercises with towel in jennifer chair in all planes with moderate resistance X10. Pt left in jennifer chair with table attached, alarm active and call light in reach. present. enrique erazo recommended SNF. EDWIN Ramos/JAY JAY Chavis/Maria E
--- NOTE | 2020-01-14 10:40 | NUR ---
PLACEMENT INTERVIEWER COMPLETED HENS.
[2020-01-14 12:00] VITALS: BP 106/59
[2020-01-14 16:00] VITALS: BP 114/75
--- NOTE | 2020-01-14 18:38 | NUR ---
LYING IN BED RESTING QUITELY . ALARM INTACT TO BED. NO C/O VOICED. IN STABLE CONDITION.
--- NOTE | 2020-01-14 19:47 | NUR ---
24 HR chart check completed.
[2020-01-14 20:00] VITALS: BP 105/66
--- NOTE | 2020-01-14 20:00 | NUR ---
PATIENT PLEASANT AND COOPERATIVE. HAS NO COMPLAINTS AT THIS TIME. NO DISTRESS NOTED. BREATHING IS EASY AND REGULAR. PATIENT ALERT TO PERSON ONLY AND JUMPS FROM TOPIC TO TOPIC, NOT ABLE TO KEEP ON TRACK. BODY ALARM INTACT AT THIS TIME. WILL CONTINUE TO MONITOR
--- NOTE | 2020-01-14 21:18 | NUR ---
PRN RESTORIL GIVEN PT COMPLAINTS OF SLEEPLESSNESS AND RESTLESSNESS. CALL LIGHT WITHIN REACH, WILL MONITOR
--- NOTE | 2020-01-14 22:00 | NUR ---
PRN RESTORIL APPEARS EFFECTIVE, PT SLEEPING
[2020-01-15] VITALS: BP 88/48; BP 99/48
--- NOTE | 2020-01-15 00:08 | NUR ---
NOTIFIED DR. CHOE AT THIS TIME OF PATIENTS BLOOD PRESSURE BEING 88/48 MANUALLY. NOTIFIED HIM PATIENTS BLOOD PRESSURES HAVE BEEN RUNNING ON THE LOWER SIDE AND THAT HE TAKES QUITE A BIT OF MEDICATIONS THAT COULD POSSIBLY LOWER IT AT NIGHT. PATIENT DOES WAKE RIGHT UP BUT WAS IN A DEEP SLEEP. DR. CHOE STATED WE WILL KEEP AN EYE ON IT FOR NOW.
--- NOTE | 2020-01-15 01:27 | NUR ---
PATIENT AT THIS TIME HOPPED OUT OF BED AND STATED HE WAS READY TO GO TO THE [facility]. ATTEMPTED TO REORIENT THE PATIENT AND LET HIM KNOW WHAT TIME IS WAS. PATIENT STATED HE WANTED TO LAY BACK DOWN IF THAT'S WHAT TIME IT WAS. PATIENT GOT BACK IN BED. BED ALARM REAPPLIED. CALL LIGHT WITHIN REACH, WILL MONITOR
[2020-01-15 04:00] VITALS: BP 72/46
--- NOTE | 2020-01-15 04:29 | NUR ---
SPOKE WITH DR. GARY AT THIS TIME.NOTIFIED HER THAT PATIENTS MANUAL BLOOD PRESSURE IS 72/46 AND THAT PATIENT IS ABLE TO BE AROUSED STILL AND WILL STILL ANSWER NURSE, BUT GOES BACK TO SLEEP. NOTIFED HER THAT THE ONLY EXTRA THING THE PATIENT RECIEVED YESTERDAY WAS ATIVAN, BUT HAS BEEN GETTING RESTORIL EVERY NIGHT FOR THE PAST TWO NIGHTS. ORDER RECIEVED FOR A 500CC BOLUS AND FOR BLOOD PRESSURE TO BE RECHECKED AFTER
--- NOTE | 2020-01-15 04:44 | NUR ---
AFTER BOLUS STARTED, PATIENT STATED HIS IV SITE WAS BURNING. NEW IV STARTED IN RIGHT AC #20 GUAGE. PATIENT STATED IT FEELS BETTER THERE. WILL CONTINUE TO MONITOR
--- NOTE | 2020-01-15 05:18 | NUR ---
NOTIFIED DR. GARY AT THIS TIME OF PATIENTS MANUAL BLOOD PRESSURE BEING 84/52 MANUALLY AND 99/74 PER AUTOMATIC CUFF. SHE STATED HE HAS BEEN RUNNING LOW AND WE WILL JUST KEEP AN EYE ON IT FOR NOW. NOTIFIED HER PATIENT ISN'T MUCH DIFFERENT FROM LAST NIGHT, HE'S JUST DROWSY HE'S BEEN WOKEN UP. PATIENT ABLE TO BE AROUSED AND STILL CARRY ON A CONVERSATION. CALL LIGHT WITHIN REACH, BED ALARM INTACT WILL CONTINUE TO MONITOR
[2020-01-15 05:20] VITALS: BP 84/52
[2020-01-15 07:23] LABS: INTERNATIONAL NORM RATIO 3.1 (2.0-3.5)
[2020-01-15 08:00] VITALS: BP 138/73
--- NOTE | 2020-01-15 09:50 | NUR ---
OT NOTE Pt laying supine in bed with head elevated, agreeable to 15 minute OT session. Identified by name and date of with no complaints. Transfer supine to EOB CGA with extra time needed. Sit-stand Vicki from low bed with w/w for support and safety. Functional mobility from EOB to bathroom Vicki due to assist for walker navigation and tight turns . Transferring on commode Vicki for low commode and safety with alignment . Transferring off commode modA due to low commode. Pt required multiple VCs for attention to task and command follow when given for safety. Pt stood sink side unsupported to wash face and hands at CGA with w/w. Pt tolerated 5 minutes of standing at sink for ADLs. Functional mobility from bathroom to hallway back to jennifer chair CGA with w/w. Verbal cues needed for walker safety. Pt left in jennifer chair with table attached, body alarm on and present. Continue d/c recommended SNF. EDWIN Ramos/JAY JAY Chavis/Maria E
--- NOTE | 2020-01-15 10:00 | NUR ---
PHYSICAL THERAPY Patient seen this am 1:1 for therapy visit and was resting supine in bed upon therapist arrival. Patient identified by name / and presented with bouts of increased confusion, requiring v/c to focus on task. Patients was also present this morning as patient reports no new c/o's at this time, transfering supine to sit EOB with MIN A. Patient completed sit to stand, MIN A, use of wh walker standing support and ambulated 10'x 1 to bathroom, CGA, wh walker. Patient ambulated additional 40'x 1, wh walker, CGA, demonstrating decreased stride, "slouched" standing posture, needing v/c to keep his head up. Patient also was very unteady step sequence during all 90/180 turns and returned to Kristin chair near bed following gait ex with increased fatigue. Patient remained in room with call light, tray table and body alarm. Will continue per POC as tolerated, total treatment time 16 minutes. Patricio Hurley, HEARING INSTRUMENT SPECIALIST
--- NOTE | 2020-01-15 11:47 | NUR ---
BOTTLE CASER NOTIFIED OF PATIENT DISCHARGE. BOTTLE CASER SPOKE WITH RN. BOTTLE CASER ARRANGED FOR A 12:30PM TRANSPORT WITH [facility]. BOTTLE CASER NOTIFIED MARY GRACE GAXIOLA, PATIENTS AT BEDSIDE, AND [facility]. BOTTLE CASER FAXED DISCHARGE ORDERS TO [facility].
--- NOTE | 2020-01-15 12:40 | NUR ---
Discharge instructions reviewed with patient/family. Patient receptive and verbalizes understanding. Follow-up care arranged. Written instructions given to patient/family. PATIENT LEFT IN CARE OF [facility] TO GO TO [facility]. WITH PATIENT. IV REMOVED. EZIO LINCOLN
--- NOTE | 2020-01-15 12:53 | NUR ---
PHYSICAL THERAPY CO-SIGN I approve of the Physical Therapy notes written above. Carmen Forbes PT
--- NOTE | 2020-01-15 13:19 | NUR ---
ATTEMPTED TO CALL [facility] TO GIVE NURSE TO NURSE REPORT AND KEEP GETTING A BUSY SIGNAL WILL CONTINUE TO TRY TO GET [facility]OLD OF SOMEONE.
--- NOTE | 2020-01-15 13:25 | NUR ---
OCCUPATIONAL THERAPY CO-SIGN I approve of the Occupational Therapy notes written above. THAI LEUNG, OTR/L
--- NOTE | 2020-01-15 14:39 | NUR ---
ATTEMPED AGAIN TO CALL [facility] BEFORE DOSCHARGING PATIENT OUT OF COMPUTER AND STILL CONTINUE TO GET A BUSY SIGNAL. WILL KEEP NUMBER TO TRY AGAIN.
--- NOTE | 2020-01-15 14:49 | NUR ---
NEW NUMBER GIVEN FOR [facility] AND WAS ABLE TO REACH THEM AND GIVE REPORT AND EXPLAINED WE HAD A DIFFERENT NUMBER AND THE LINE WAS BUSY. NURSE STATES THIS WAS OK.
== END 2020-01-15 14:55 | disposition other institution (70) | DRG 884 ==
LOC: ED 10:16 → EDHOLD 12:25 → 5E 12:25
PROVIDERS: Family Medicine; Internal Medicine; Nurse Practitioner Family; ADMIT Internal Medicine; ATTEND Internal Medicine
DX: F03.90 Unspecified dementia, unspecified severity, without behavioral disturbance, psychotic disturbance, mood disturbance, and anxiety (principal); I50.20 Unspecified systolic (congestive) heart failure; F32.9 Major depressive disorder, single episode, unspecified; D53.9 Nutritional anemia, unspecified; F17.210 Nicotine dependence, cigarettes, uncomplicated; M54.5 Low back pain; F41.9 Anxiety disorder, unspecified; K21.9 Gastro-esophageal reflux disease without esophagitis; I25.10 Atherosclerotic heart disease of native coronary artery without angina pectoris; E78.5 Hyperlipidemia, unspecified; Z20.828 Contact with and (suspected) exposure to other viral communicable diseases; I48.91 Unspecified atrial fibrillation; R73.9 Hyperglycemia, unspecified; Z74.8 Other problems related to care provider dependency; G89.29 Other chronic pain; E87.6 Hypokalemia; I11.0 Hypertensive heart disease with heart failure; Z79.01 Long term (current) use of anticoagulants; Z88.6 Allergy status to analgesic agent; Z88.1 Allergy status to other antibiotic agents; Z88.0 Allergy status to penicillin; Z95.1 Presence of aortocoronary bypass graft; Z95.2 Presence of prosthetic heart valve; Z90.49 Acquired absence of other specified parts of digestive tract; Z82.49 Family history of ischemic heart disease and other diseases of the circulatory system; Z80.8 Family history of malignant neoplasm of other organs or systems; Z79.82 Long term (current) use of aspirin; Z79.899 Other long term (current) drug therapy; Z85.038 Personal history of other malignant neoplasm of large intestine

== ENCOUNTER 2020-04-25 15:45 | Emergency (ER) | payer OTHER ==
[~2020-04-25] VITALS: Wt 81.6 kg
[2020-04-25 16:10] VITALS: BP 154/86
== END 2020-04-25 18:50 | disposition home or self-care (01) ==
LOC: ED 15:45
DX: S09.90XA Unspecified injury of head, initial encounter (principal); S80.212A Abrasion, left knee, initial encounter; S20.311A Abrasion of right front wall of thorax, initial encounter; Z88.1 Allergy status to other antibiotic agents; Z88.0 Allergy status to penicillin; Z88.6 Allergy status to analgesic agent; Z79.899 Other long term (current) drug therapy; Z79.82 Long term (current) use of aspirin; Z79.01 Long term (current) use of anticoagulants; Z87.891 Personal history of nicotine dependence; W10.8XXA Fall (on) (from) other stairs and steps, initial encounter; Y93.89 Activity, other specified; Y92.89 Other specified places as the place of occurrence of the external cause; Y99.8 Other external cause status

== ENCOUNTER 2021-08-06 16:28 | Emergency (ER) | payer OTHER ==
[2021-08-06 16:37] VITALS: BP 151/94
== END 2021-08-06 19:57 | disposition home or self-care (01) ==
LOC: ED 16:28
DX: S20.212A Contusion of left front wall of thorax, initial encounter (principal); I25.10 Atherosclerotic heart disease of native coronary artery without angina pectoris; K21.9 Gastro-esophageal reflux disease without esophagitis; E78.5 Hyperlipidemia, unspecified; I10 Essential (primary) hypertension; I48.91 Unspecified atrial fibrillation; F17.210 Nicotine dependence, cigarettes, uncomplicated; Z88.1 Allergy status to other antibiotic agents; Z88.6 Allergy status to analgesic agent; Z79.899 Other long term (current) drug therapy; Z79.82 Long term (current) use of aspirin; Z90.49 Acquired absence of other specified parts of digestive tract; Z98.890 Other specified postprocedural states; W22.8XXA Striking against or struck by other objects, initial encounter; Y93.89 Activity, other specified; Y92.89 Other specified places as the place of occurrence of the external cause; Y99.8 Other external cause status

== ENCOUNTER 2021-12-06 21:29 | Emergency (ER) | payer OTHER ==
[~2021-12-06] VITALS: Ht 182.8 cm; Wt 86.2 kg
[2021-12-06 21:32] VITALS: BP 131/74
[2021-12-06 22:05] LABS: BASO # 0.1 10*3/uL (0.0-0.1); EOS # 0.3 10*3/uL (0.0-0.4); EOS % 4.4 % (1.0-4.0); LYMPH # 1.6 10*3/uL (1.3-4.4); LYMPH % 26.5 % (27.0-41.0); MEAN CELL VOLUME 97.3 fl (80.0-94.0); MEAN CORPUSCULAR HGB 32.7 pg (27.0-31.0); MEAN CORPUSCULAR HGB CONC 33.6 g/dl (33.0-37.0); MEAN PLATELET VOLUME 10.5 fl (9.6-12.3); MONO # 0.6 10*3/uL (0.1-1.0); MONO % 9.9 % (3.0-9.0); NEUT # 3.4 10*3/uL (2.3-7.9); NEUT % 56.7 % (47.0-73.0); PLATELET COUNT AUTOMATED 192 10*3/uL (130-400); RED BLOOD COUNT 4.01 10*6/uL (4.50-5.90); RED CELL DISTRI WIDTH 13.2 % (0-14.5); WHITE BLOOD COUNT 6.1 10*3/uL (4.8-10.8)
[2021-12-06 22:08] LABS: BILIRUBIN Negative (Negative); BLOOD 3+ (Negative); CLARITY Clear (Clear); COLOR Yellow (Yellow); GLUCOSE Negative (Negative); KETONE Negative (Negative); LEUKO ESTERASE Trace (Negative); NITRITE Negative (Negative); PH 5.5 (4.5-8.0)
[2021-12-06 22:19] LABS: INTERNATIONAL NORM RATIO 3.7 (2.0-3.5)
[2021-12-06 22:21] LABS: ALKALINE PHOSPHATASE 91 U/L (45-117); BUN 14 mg/dl (7-24); CHLORIDE 110 mmol/L (98-107); CREATININE 0.91 mg/dL (0.70-1.30); LIPASE 123 U/L (73-393); POTASSIUM 3.7 mmol/L (3.5-5.1); SGOT/AST 28 IU/L (3-35); SGPT/ALT 22 U/L (12-78); SODIUM 141 mmol/L (136-145); TOTAL PROTEIN 6.5 gm/dL (6.4-8.2)
[2021-12-06 22:33] LABS: RBC 41-50 rbc/hpf (0-2)
== END 2021-12-06 22:40 | disposition home or self-care (01) ==
LOC: ED 21:29
PROVIDERS: Physician Assistant
DX: R31.29 Other microscopic hematuria (principal); Z98.890 Other specified postprocedural states; Z95.1 Presence of aortocoronary bypass graft; Z79.82 Long term (current) use of aspirin; Z79.01 Long term (current) use of anticoagulants; Z79.899 Other long term (current) drug therapy; Z88.1 Allergy status to other antibiotic agents; Z88.5 Allergy status to narcotic agent; Z88.0 Allergy status to penicillin

== ENCOUNTER → 2022-03-26 | Outpatient (CLI) | payer MEDICARE ==
[~2022-03-26] MED LIST changes: +ERTAPENEM1 GM IV; +FUROSEMIDE20 M1 PO; +LASIX20 MG PO; +WARFARIN SODIU2.5 MG PO
== END | disposition home or self-care (01) ==
LOC: WOUNDCARE 03-19 02:45
PROVIDERS: ATTEND Podiatrist Foot & Ankle Surgery
DX: L89.624 Pressure ulcer of left heel, stage 4 (principal); I48.91 Unspecified atrial fibrillation; I25.10 Atherosclerotic heart disease of native coronary artery without angina pectoris; I11.0 Hypertensive heart disease with heart failure; I50.9 Heart failure, unspecified; I25.2 Old myocardial infarction; E78.5 Hyperlipidemia, unspecified; K21.9 Gastro-esophageal reflux disease without esophagitis; F41.9 Anxiety disorder, unspecified; F03.90 Unspecified dementia, unspecified severity, without behavioral disturbance, psychotic disturbance, mood disturbance, and anxiety; F32.A Depression, unspecified; Z87.891 Personal history of nicotine dependence; Z95.4 Presence of other heart-valve replacement; Z95.1 Presence of aortocoronary bypass graft; Z90.49 Acquired absence of other specified parts of digestive tract; Z85.038 Personal history of other malignant neoplasm of large intestine

== ENCOUNTER → 2022-04-09 | Outpatient (CLI) | payer MEDICARE | END | disposition home or self-care (01) | LOC: WOUNDCARE 02:11 | PROVIDERS: ATTEND Podiatrist Foot & Ankle Surgery | DX: L89.624 Pressure ulcer of left heel, stage 4 (principal); L89.896 Pressure-induced deep tissue damage of other site; I48.91 Unspecified atrial fibrillation; I25.10 Atherosclerotic heart disease of native coronary artery without angina pectoris; I11.0 Hypertensive heart disease with heart failure; I50.9 Heart failure, unspecified; I25.2 Old myocardial infarction; K21.9 Gastro-esophageal reflux disease without esophagitis; F41.9 Anxiety disorder, unspecified; F32.A Depression, unspecified; F03.90 Unspecified dementia, unspecified severity, without behavioral disturbance, psychotic disturbance, mood disturbance, and anxiety; Z87.891 Personal history of nicotine dependence; Z95.4 Presence of other heart-valve replacement; Z95.1 Presence of aortocoronary bypass graft; Z90.49 Acquired absence of other specified parts of digestive tract ==

== ENCOUNTER → 2022-04-23 | Outpatient (CLI) | payer MEDICARE | END | disposition home or self-care (01) | LOC: WOUNDCARE 04:02 | PROVIDERS: ATTEND Podiatrist Foot & Ankle Surgery | DX: L89.624 Pressure ulcer of left heel, stage 4 (principal); L89.896 Pressure-induced deep tissue damage of other site; I48.91 Unspecified atrial fibrillation; I25.10 Atherosclerotic heart disease of native coronary artery without angina pectoris; I11.0 Hypertensive heart disease with heart failure; I50.9 Heart failure, unspecified; I25.2 Old myocardial infarction; K21.9 Gastro-esophageal reflux disease without esophagitis; F41.9 Anxiety disorder, unspecified; F32.9 Major depressive disorder, single episode, unspecified; F03.90 Unspecified dementia, unspecified severity, without behavioral disturbance, psychotic disturbance, mood disturbance, and anxiety; Z87.891 Personal history of nicotine dependence; Z95.4 Presence of other heart-valve replacement; Z95.1 Presence of aortocoronary bypass graft; Z90.49 Acquired absence of other specified parts of digestive tract ==